=== PATIENT | male | born 1985 | race Caucasian/White ===

== ENCOUNTER → 2018-04-19 | Outpatient (CLI) | payer OTHER ==
--- NOTE | 2018-04-19 14:29 | RADIOLOGY REPORT (SQ) ---
EXAM DESCRIPTION: FOOT LEFT COMPLETE COMPLETED DATE/TIME: 04/19/2018 2:07 pm REASON FOR STUDY: LT FOOT PAIN M79.672 PAIN IN LEFT FOOT COMPARISON: None. NUMBER OF VIEWS: Three views. TECHNIQUE: AP, lateral and oblique radiographic images acquired of the left foot. LIMITATIONS: None. FINDINGS: MINERALIZATION: Normal. BONES: No acute fracture or dislocation. No worrisome bone lesions. JOINTS: No effusions. SOFT TISSUES: No soft tissue swelling. No foreign body. OTHER: No other significant finding. IMPRESSION: NEGATIVE STUDY OF THE LEFT FOOT. NO RADIOGRAPHIC EVIDENCE OF ACUTE INJURY. TECHNICAL DOCUMENTATION: JOB ID: [id number] [employer]- All Rights Reserved Reading location - IP/workstation name: [email or web address]
== END ==
LOC: OD 13:50
PROVIDERS: ATTEND Physician Assistant
DX: M79.672 Pain in left foot (principal)

== ENCOUNTER 2019-09-06 10:04 | Day surgery (SDC) | payer OTHER ==
[2019-09-02 09:44] LABS: HEMATOCRIT 45.1 % (37.9-51.0); MEAN CORPUSCULAR HEMOGLOBIN 31.4 pg (27.0-33.4); MEAN CORPUSCULAR HGB CONC 35.4 g/dL (32.0-36.0); MEAN CORPUSCULAR VOLUME 89 fl (80-97); PLATELET COUNT 217 10^3/uL (150-450); RED BLOOD COUNT 5.08 10^6/uL (4.35-5.55); RED CELL DISTRIBUTION WIDTH 13.3 % (11.5-14.0); WHITE BLOOD COUNT 8.3 10^3/uL (4.0-10.5)
[2019-09-02 10:08] LABS: ANION GAP 10 (5-19); BLOOD UREA NITROGEN 14 mg/dL (7-20); CALCIUM 9.8 mg/dL (8.4-10.2); CARBON DIOXIDE 30 mmol/L (22-30); CHLORIDE 101 mmol/L (98-107); GLUCOSE 89 mg/dL (75-110); POTASSIUM 4.6 mmol/L (3.6-5.0)
[~2019-09-06 10:04] MED LIST: ACETAMINOPHEN 325 MG TABLET PO PRN; CEFOXITIN SODIUM 2 GM in DEXTROSE 5%-WATER 100 ML IV PRN; DEXAMETHASONE SOD PHOSPHATE INJ 4 MG/1 ML VIAL ONE; FENTANYL CITRATE INJ/PF 100 MCG/2 ML AMPUL ONE; IBUPROFEN 800 MG in NORMAL SALINE 250 ML IV PRN; LACTATED RINGERS 1000 ML IV PRN; LIDOCAINE 0.5% INJ-PF (5 MG/ML) 50 ML SDV SUBCUT PRN; MIDAZOLAM 2 MG/2 ML INJ ONE; ONDANSETRON HCL INJ/PF 4 MG/2 ML SDV ONE; PROPOFOL INJ 200 MG/20 ML VIAL IV ONE
[2019-09-06] MEDS ORDERED: ACETAMINOPHEN 325 MG TABLET ONE (10:21)
[2019-09-06] MEDS ORDERED: ALBUTEROL SULFATE 0.083% NEB 2.5 MG/3 ML AMPUL NEB ONE ×2 (11:34→12:15)
[2019-09-06] MEDS ORDERED: MIDAZOLAM 2 MG/2 ML INJ ONE (11:38)
[2019-09-06] MEDS ORDERED: RINGERS SOLUTION,LACTATED 1,000 ML IV ONE (12:15)
[2019-09-06] MEDS ORDERED: MIDAZOLAM 2 MG/2 ML INJ IV ONE (12:15)
[2019-09-06] MEDS ORDERED: SUCCINYLCHOLINE CHLORIDE INJ 200 MG/10 ML VIAL ONE (12:41)
[2019-09-06] MEDS ORDERED: BUPIVACAINE HCL 0.25 % INJ/PF (2.5 MG/1 ML) 30 ML VIAL ONE (13:12)
[2019-09-06] MEDS ORDERED: DIPHENHYDRAMINE HCL 50 MG/ML VIAL IV PRN (14:35)
[2019-09-06] MEDS ORDERED: PROMETHAZINE HCL INJ 25 MG/1 ML VIAL IV PRN ×2 (14:35)
[2019-09-06] MEDS ORDERED: ONDANSETRON HCL INJ/PF 4 MG/2 ML SDV IV PRN (14:35)
[2019-09-06] MEDS ORDERED: MEPERIDINE HCL/PF INJ 25 MG/1 ML DISP.SYRIN IV PRN (14:35)
[2019-09-06] MEDS ORDERED: FENTANYL CITRATE INJ/PF 100 MCG/2 ML AMPUL IV PRN ×3 (14:35)
[2019-09-06] MEDS ORDERED: MORPHINE SULFATE 10 MG/ML INJ IV PRN (14:35)
--- NOTE | 2019-09-06 15:02 | Discharge Summary ---
Discharge Summary (SDC) - Discharge Final Diagnosis: Large, complex pilonidal cyst with tunneling. Date of Surgery: 09/06/19 Discharge Date: 09/06/19 Condition: Stable Treatment or Instructions: Discharge home. Diet as tolerated. Activity: Nonstrenuous. Follow-up with me in 7 to 10 days. Ibuprofen 800 mg p.o. 3 times daily with meals. Lavalette 10/3 2 5 mg p.o. every 6 hours PRN for pain. Okay to remove packing and shower tomorrow. Prescriptions: Ibuprofen [Motrin 800 mg Tablet] 800 mg PO MEALS #42 tablet Hydrocodone/Acetaminophen [Lavalette 10-325 mg Tablet] 1 tab PO Q6HP PRN #28 tablet PRN Reason: For Pain Referrals: AVNI GRIFFIN MD [Primary Care Provider] - Discharge Diet: As Tolerated Respiratory Treatments at Home: Deep Breathing/Coughing, Incentive Spirometer Discharge Activity: Balance Activity w/Rest Home Care Assistance: None Needed Report the Following to Your Physician Immediately: Shortness of Breath, Nausea, Vomiting, Increase in Pain, Fever over 101 Degrees, Unusual Bleeding, Redness
--- NOTE | 2019-09-06 15:07 | Operative Report ---
Nonrecallable Operative Report DATE OF SURGERY: 09/06/19 PREOPERATIVE DIAGNOSIS: Large, complex pilonidal cyst with multiple tunneling fistulae. POSTOPERATIVE DIAGNOSIS: Same as above. OPERATION: Excision of large, complex pilonidal cyst with tunneling fistulae. SURGEON: MICHAEL CARBAJAL ANESTHESIA: GA TISSUE REMOVED OR ALTERED: Pilonidal cyst COMPLICATIONS: None apparent. ESTIMATED BLOOD LOSS: 50 cc PROCEDURE: Drains/implants: 4 x 4 gauze x3. Procedure in detail: After informed consent was obtained, the patient was brought to the operating room and laid in the prone jackknife position. The area of the sacrum and buttock were prepped and draped in a normal sterile fashion. There were multiple pits in an area approximately 5 to 6 cm in length in the midline, overlying the sacrum. There were 3 separate tunneling areas, one at the 1 o'clock position, 1 at the 5 o'clock position, and one at the 9 o'clock position. The midline was opened with a 15 blade scalpel, and the pits were excised. The cyst was then excised down to healthy appearing tissue in both the lateral and deep positions. The fistula tracts were excised using sharp dissection. The external opening of the fistula tracts were left open. The midline was closed in 2 layers. The deep layer was closed using 2-0 Vicryl suture in simple interrupted fashion. The skin was closed using 0 Vicryl suture in horizontal and vertical mattress fashion. The open areas were then packed with 4 x 4 gauze. A dressing was placed, and the procedure was concluded. All sponge, instrument, needle counts were correct x2. Condition: Stable.
[2019-09-06] MEDS ORDERED: HYDROCODONE/ACETAMINOPHEN 10-325 MG TABLET ONE (15:49)
[2019-09-06 17:09] VITALS: BP 130/94
== END 2019-09-06 17:00 | disposition home or self-care (01) ==
LOC: OROUT 10:04
PROVIDERS: ATTEND Surgery
DX: L05.91 Pilonidal cyst without abscess (principal); F17.210 Nicotine dependence, cigarettes, uncomplicated
CPT/HCPCS: 36415; 85027; 80048; 88304 ×2; 00300; 11771; J2250; J1100; J3010; J0330; J2405; J7060; J7050; J2704; J1741; J0694; 300